=== PATIENT | female | born 1975 | race Caucasian/White ===

== ENCOUNTER 2024-05-04 10:55 | Outpatient (CLI) | payer MEDICAID ==
--- NOTE | 2024-05-04 13:49 | XRAY Report ---
PROCEDURE: Chest 2V INDICATIONS: ACUTE COUGH TECHNIQUE: 2 views of the chest were acquired. COMPARISON: None. FINDINGS: Surgical changes and devices: Posterior thoracic fixation rods. Hardware is intact without evidence of hardware fracture or periprosthetic lucency to suggest loosening. Lungs and pleura: No pleural effusions or pneumothorax. Lungs are clear. Mediastinum: Mediastinal contours appear normal. Heart size is normal. Bones and chest wall: No suspicious bony lesions. Overlying soft tissues appear unremarkable. IMPRESSION: No acute cardiopulmonary process. Reviewed by: Kathi Gunter MD on 05/04/2024 1:48 PM PDT Approved by: Kathi Gunter MD on 05/04/2024 1:48 PM PDT Station ID: [id number]
== END 2024-05-04 12:53 | disposition home or self-care (01) ==
LOC: DI.N 10:55
PROVIDERS: ATTEND Physician Assistant Medical
DX: R05.1 Acute cough (principal); N30.00 Acute cystitis without hematuria
CPT/HCPCS: 87086; 87181

== ENCOUNTER 2024-05-04 10:55 | Outpatient (CLI) | payer MEDICAID | END 2024-05-04 15:36 | disposition home or self-care (01) | LOC: LAB.N 10:55 | PROVIDERS: ATTEND Physician Assistant Medical | DX: N30.00 Acute cystitis without hematuria (principal) | CPT/HCPCS: 87086 ==